=== PATIENT | female | born 1995 ===

== ENCOUNTER 2022-09-08 21:36 | Emergency (ER) | payer SELFPAY ==
[2022-09-08] MEDS ORDERED: Alum Hydro/Mag Hydro/Simeth XS 15 ML, Lidocaine 2% 5 ML PO ONE ×2 (21:44)
[2022-09-08] MEDS ORDERED: Sodium Chloride 0.9% 1,000 ML IV ONE (21:45)
[2022-09-08 22:28] LABS: BLOOD UREA NITROGEN,BUN 12 mg/dL (7.0-18.0); CARBON DIOXIDE,CO2 27.1 mmol/L (21.0-32.0); CHLORIDE,CL 103 mmol/L (98-107); GLUCOSE RANDOM 84 mg/dL (74-106); LIPASE 63 U/L (73-393); POTASSIUM,K 3.7 mmol/L (3.5-5.1); SODIUM,NA 141 mmol/L (136-145)
[2022-09-08 22:31] LABS: CORONAVIRUS COVID-19 NAA NEGATIVE (NEGATIVE); ESTIMATED GFR 71 mL/min (>60); INFLUENZA A NAA NEGATIVE (NEGATIVE); INFLUENZA B NAA NEGATIVE (NEGATIVE)
[2022-09-08] MEDS ORDERED: Iopamidol 755 MG/ML 500 ML Multipack Bottle IVPUSH ONE (23:47)
[2022-09-08] MEDS ORDERED: Ondansetron 4 MG/2 ML SDV IVPUSH ONE (23:50)
== END 2022-09-09 01:50 | disposition home or self-care (01) ==
LOC: MW.ED 21:36
DX: R07.9 Chest pain, unspecified (principal); I10 Essential (primary) hypertension; Z20.822 Contact with and (suspected) exposure to COVID-19
CPT/HCPCS: 0240U; 36415; 71045; 71275; 74175; 80053; 81001; 81025; 83690; 84484; 85025; 87086; 93005; 96361; 96374; 99284; A9270; J2405; J7030; Q9967; 93010

== ENCOUNTER 2022-12-02 22:42 | Emergency (ER) | payer SELFPAY ==
[2022-12-02] MEDS ORDERED: Ibuprofen 600 MG Tab PO ONE (22:59)
[2022-12-02] MEDS ORDERED: Acetaminophen/oxyCODONE 325-5 MG Tab PO ONE (22:59)
== END 2022-12-03 01:34 | disposition home or self-care (01) ==
LOC: MW.ED 22:42
DX: S09.93XA Unspecified injury of face, initial encounter (principal); Y04.0XXA Assault by unarmed brawl or fight, initial encounter
CPT/HCPCS: 70450; 70486; 71250; 73501; 81025; 99285; A9270; 99284

== ENCOUNTER 2022-12-08 13:30 | Emergency (ER) | payer SELFPAY | END 2022-12-08 16:18 | disposition home or self-care (01) | LOC: MW.ED 13:30 | DX: S06.0XAA Concussion with loss of consciousness status unknown, initial encounter (principal); Z88.0 Allergy status to penicillin; Y09 Assault by unspecified means | CPT/HCPCS: 99283 ==